=== PATIENT | female | born 1955 | race Caucasian/White ===

== ENCOUNTER 2019-03-07 14:17 | Emergency (ER) | payer BC ==
[2019-03-07] MEDS ORDERED: HYDROmorphone 1 MG/ML 1 ML SYRINGE IVP STA ×2 (14:32→14:47)
[2019-03-07] MEDS ORDERED: SODIUM CHLORIDE 0.9% 1,000 ML IV STA (14:36)
[2019-03-07] MEDS ORDERED: KETOROLAC 30 MG/ML 1 ML VIAL IVP STA (14:46)
[2019-03-07 15:05] VITALS: RESP 18; TEMP 98.3
[2019-03-07] MEDS ORDERED: ONDANSETRON 4 MG ODT STARTER PACK 2 TAB BTL PO STA (15:24)
[2019-03-07] MEDS ORDERED: Acetaminophen-Codeine 300-30mg TAB PO STA ×2 (15:24→15:48)
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
[2019-03-07 15:57] VITALS: BP 152/95; PULSE 69
== END 2019-03-07 16:30 | disposition other institution (70) ==
LOC: EC 14:17 → SUPCPDRO 14:17 → EC 16:30
DX: T24.211A Burn of second degree of right thigh, initial encounter (principal); T24.212A Burn of second degree of left thigh, initial encounter; T31.10 Burns involving 10-19% of body surface with 0% to 9% third degree burns; Z87.891 Personal history of nicotine dependence; Z79.1 Long term (current) use of non-steroidal anti-inflammatories (NSAID); Z79.899 Other long term (current) drug therapy; X12.XXXA Contact with other hot fluids, initial encounter; Y93.89 Activity, other specified
CPT/HCPCS: 99285; 96374; 96375; 96361; J1885; J1170; S0119

== ENCOUNTER 2019-03-11 18:32 | Emergency (ER) | payer BC ==
[2019-03-11 19:54] VITALS: BP 174/94; PULSE 91; RESP 18
[2019-03-11 20:57] VITALS: TEMP 98.7
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
== END 2019-03-11 21:03 | disposition home or self-care (01) ==
LOC: EC 18:32
DX: Z48.00 Encounter for change or removal of nonsurgical wound dressing (principal); Z79.1 Long term (current) use of non-steroidal anti-inflammatories (NSAID); Z79.899 Other long term (current) drug therapy; Z87.891 Personal history of nicotine dependence; Z87.828 Personal history of other (healed) physical injury and trauma
CPT/HCPCS: 99282

== ENCOUNTER 2020-04-20 13:00 | Emergency (ER) | payer MEDICAID ==
[2020-04-20 13:17] VITALS: RESP 18
--- NOTE | 2020-04-20 14:10 | ED ---
Chest Pain HPI - General Chief Complaint: Chest Pain Stated Complaint: SOB,R Side TIngling Time Seen by Provider: 04/20/20 13:24 Source: patient, RN notes reviewed Mode of arrival: ambulatory Limitations: no limitations - History of Present Illness Initial Comments: This is a 64-year-old female with no personal history of heart disease but who does have hypertension who presents with complaints of 2 weeks of intermittent episodes of shortness of breath with no definite overt chest pain but she has had some left-sided numbness his fist to the medial aspect of the left forearm below the elbow. Currently she is symptom free but the symptoms have been coming on and off lasting between 15 and 30 minutes. She does have a history of anxiety she does states she recently lost her and is doing with the anxiety of that time. No cough fevers chills nausea vomiting sweats no other symptoms at this time when asked again no chest pain which does have some intermittent tightness. - Related Data Home Medications Medication Instructions Recorded Confirmed Citalopram Hydrobromide [CeleXA] 20 mg PO DAILY 04/20/20 04/20/20 Losartan Potassium 50 mg PO DAILY 04/20/20 04/20/20 Meloxicam 7.5 mg PO DAILY 04/20/20 04/20/20 Oxybutynin Chloride 5 mg PO BID 04/20/20 04/20/20 Zolpidem Tartrate [Ambien] 5 mg PO HS PRN 04/20/20 04/20/20 Allergies Allergy/AdvReac Type Severity Reaction Status Date / Time No Known Allergies Allergy Verified 04/20/20 14:35 Review of Systems ROS Statement: Those systems with pertinent positive or pertinent negative responses have been documented in the HPI. ROS Other: All systems not noted in ROS Statement are negative. EKG Findings - EKG Results: EKG: interpreted by JOSE LUIS, sinus rhythm (Normal sinus rhythm a 100 IN interval 172 QRS 88 QT since QTC 382/[address]-T wave changes.) Past Medical History Past Medical History: Hypertension History of Any Multi-Drug Resistant Organisms: None Reported Past Surgical History: Unable to Obtain Past Psychological History: No Psychological Hx Reported Smoking Status: Never smoker Past Alcohol Use History: None Reported Past Drug Use History: None Reported General Exam - General Exam Comments Initial Comments: This is a well-developed well-nourished awake alert oriented 3 female Limitations: no limitations General appearance: alert, anxious Head exam: Present: atraumatic, normocephalic, normal inspection Eye exam: Present: normal appearance, PERRL, EOMI. Absent: scleral icterus, conjunctival injection, periorbital swelling ENT exam: Present: normal exam, mucous membranes moist Neck exam: Present: normal inspection. Absent: tenderness, meningismus, lymphadenopathy Respiratory exam: Present: normal lung sounds bilaterally. Absent: respiratory distress, wheezes, rales, rhonchi, stridor Cardiovascular Exam: Present: normal rhythm, tachycardia, normal heart sounds. Absent: systolic murmur, diastolic murmur, rubs, gallop, clicks GI/Abdominal exam: Present: soft, normal bowel sounds. Absent: distended, tenderness, guarding, rebound, rigid Extremities exam: Present: normal inspection, full ROM, normal capillary refill. Absent: tenderness, pedal edema, joint swelling, calf tenderness Back exam: Present: normal inspection Neurological exam: Present: alert, oriented X3, CN II-XII intact Psychiatric exam: Present: normal affect, normal mood Skin exam: Present: warm, dry, intact, normal color. Absent: rash Course Vital Signs 04/20/20 13:11 Temperature 98.1 F Pulse Rate 101 H Respiratory 18 Rate Blood Pressure 171/89 O2 Sat by Pulse 98 Oximetry Chest Pain MDM - MDM Patient has no further symptoms at this time. I did discuss [employer] her and with Dr. So. Patient will follow up outpatient and I do recommend a stress test. Disposition Clinical Impression: Atypical chest pain Disposition: HOME SELF-CARE Condition: Good Instructions (If sedation given, give patient instructions): Chest Pain (ED) Additional Instructions: Follow-up with Dr. So to schedule an outpatient stress test. Is patient prescribed a controlled substance at d/c from ED?: No Referrals: Sushma So MD [Primary Care Provider] - 1-2 days
[2020-04-20 14:24] LABS: Basophils # (A) 0.1 k/uL (0-0.2); Basophils % (A) 1 %; Eosinophils # (A) 0.2 k/uL (0-0.7); Eosinophils % (A) 2 %; HCT 38.7 % (34.0-46.0); HGB 12.8 gm/dL (11.4-16.0); Lymphocytes # (A) 2.5 k/uL (1.0-4.8); Lymphocytes % (A) 31 %; MCH 30.5 pg (25.0-35.0); MCHC 33.1 g/dL (31.0-37.0); MCV 92.2 fL (80.0-100.0); Mean Platelet Volume 6.8; Monocytes # (A) 0.5 k/uL (0-1.0); Monocytes % (A) 7 %; Neutrophils # (A) 4.7 k/uL (1.3-7.7); Neutrophils % (A) 58 %; Platelet Count 364 k/uL (150-450); RDW 12.6 % (11.5-15.5); WBC 8.1 k/uL (3.8-10.6)
--- NOTE | 2020-04-20 14:26 | XR ---
EXAMINATION TYPE: XR chest 2V DATE OF EXAM: 04/20/2020 COMPARISON: NONE HISTORY: Shortness of breath TECHNIQUE: Frontal and lateral views of the chest are obtained. FINDINGS: Scattered senescent parenchymal changes noted. Hyperinflation compatible with COPD. No evidence for infiltrate. No evidence for atelectasis. Heart size is stable. Mediastinal structures are stable and grossly unremarkable. No evidence for hilar prominence. Degenerative changes dorsal spine. IMPRESSION: 1. No evidence for acute pulmonary disease.
[2020-04-20 14:31] LABS: Albumin 4.1 g/dL (3.5-5.0); Calcium 9.1 mg/dL (8.4-10.2); Total Bilirubin 0.6 mg/dL (0.2-1.3); Total Protein 7.8 g/dL (6.3-8.2)
[2020-04-20 14:35] LABS: D-Dimer 0.56 mg/L FEU (<0.60); INR 0.9 (<1.2); Partial Thromboplastin Time 24.6 sec (22.0-30.0); Prothrombin Time 9.5 sec (9.0-12.0)
[2020-04-20 14:36] LABS: Potassium 4.8 mmol/L (3.5-5.1)
[2020-04-20 15:35] VITALS: BP 173/85; PULSE 85; TEMP 97.3
== END 2020-04-20 15:39 | disposition home or self-care (01) ==
LOC: EC 13:00
DX: R07.89 Other chest pain (principal); I10 Essential (primary) hypertension; F41.9 Anxiety disorder, unspecified; R06.02 Shortness of breath; R20.2 Paresthesia of skin; Z79.899 Other long term (current) drug therapy; Z79.1 Long term (current) use of non-steroidal anti-inflammatories (NSAID)
CPT/HCPCS: 36415; 71046; 80053; 82550; 83735; 84484; 85025; 85379; 85610; 85730; 93005; 99285

== ENCOUNTER → 2021-12-06 | Outpatient (CLI) | payer MEDICARE ==
[2021-12-06 08:28] LABS: Appearance,Urine Clear (Clear); Bilirubin,Urine Negative (Negative); Blood,Urine Negative (Negative); Color,Urine Light Yellow; Glucose,Urine (UA) Negative (Negative); Ketones,Urine Negative (Negative); Leukocyte Esterase,Urine Negative (Negative); Nitrite,Urine Negative (Negative); PH, Urine 5.5 (5.0-8.0); Protein,Urine Negative (Negative); Specific Gravity,Urine 1.008 (1.001-1.035); Urobilinogen,Urine <2.0 mg/dL (<2.0)
[2021-12-06 08:36] LABS: INR 0.9 (<1.2); Partial Thromboplastin Time 25.8 sec (22.0-30.0); Prothrombin Time 10.1 sec (9.0-12.0)
[2021-12-06 14:20] LABS: HCT 41.6 % (37.2-46.3); HGB 13.1 g/dL (12.0-15.0); MCH 29.4 pg (27.0-32.0); MCHC 31.5 g/dL (32.0-37.0); MCV 93.3 fL (80.0-97.0); Mean Platelet Volume 9.2 fL (9.5-12.2); NRBC Per 100 WBC 0 /100 WBCS (0.0-0.0); Platelet Count 398 X 10*3/uL (140-440); RBC 4.46 X 10*6/uL (4.10-5.20); RDW 13.4 % (11.5-14.5); WBC 8.45 X 10*3/uL (4.50-10.00)
[2021-12-06 15:54] LABS: African American GFR (CKD) 105.4 (60.0-200.0); Albumin 4.4 g/dL (3.8-4.9); Albumin/Globulin Ratio 1.33 (1.60-3.17); Anion Gap 17.6 mmol/L (10.00-18.00); Blood Urea Nitrogen 11.9 mg/dL (9.0-27.0); Calcium 9.4 mg/dL (8.7-10.3); Carbon Dioxide 18.4 mmol/L (20.0-27.5); Globulin 3.3 g/dL (1.6-3.3); Non-African American GFR(CKD) 90.9 (60.0-200.0); Total Bilirubin 0.3 mg/dL (0.30-1.20); Total Protein 7.7 g/dL (6.2-8.2)
== END | disposition home or self-care (01) ==
LOC: LABPAT 07:03
PROVIDERS: ATTEND Orthopaedic Surgery
DX: Z01.812 Encounter for preprocedural laboratory examination (principal); M17.11 Unilateral primary osteoarthritis, right knee
CPT/HCPCS: 36415; 80053; 81003; 85027; 85610; 85730; 87070

== ENCOUNTER 2021-12-13 11:02 | Day surgery (SDC) | payer MEDICARE ==
[2021-12-08 14:06] VITALS: BMI 38.5
[~2021-12-13 11:02] MED LIST: ACETAMINOPHEN TAB 500 MG TAB PO PRN; DEXAMETHASONE SOD PHOSPHATE 4 MG/ML 1 ML VIAL IV ONE; GABAPENTIN 300 MG CAP PO PRN; LACTATED RINGERS 1,000 ML IV SCH; MELOXICAM 7.5 MG TAB PO PRN; MIDAZOLAM 2 MG/2 ML VIAL IV PRN; ONDANSETRON 4 MG/2 ML VIAL IVP ONE; TRANEXAMIC ACID IN NACL,ISO-OS 1,000 MG in SALINE 1 100ML.BAG IVPB PRN
[2021-12-13] MEDS ORDERED: fentaNYL (PF) 50 MCG/ML 2 ML AMP IVP ONE (12:19)
[2021-12-13] MEDS ORDERED: MIDAZOLAM 2 MG/2 ML VIAL IVP ONE (12:19)
[2021-12-13] MEDS ORDERED: TRANEXAMIC ACID IN NACL,ISO-OS 1,000 MG/100 ML BAG ONE (12:44)
[2021-12-13] MEDS ORDERED: ROCURONIUM 10 MG/ML (5 ML VIAL) IV ONE (12:44)
[2021-12-13] MEDS ORDERED: SUCCINYLCHOLINE CHLORIDE 100 MG/5 ML SYR IV ONE (12:44)
[2021-12-13] MEDS ORDERED: PROPOFOL 10 MG/ML 20 ML VIAL IV ONE (12:44)
[2021-12-13] MEDS ORDERED: LIDOCAINE 1% INJ 10MG/ML (20 ML MDV) ONE (12:44)
[2021-12-13] MEDS ORDERED: ROPIVACAINE 5 MG/ML 30 ML VIAL ONE (12:44)
[2021-12-13] MEDS ORDERED: ceFAZolin 1,000 MG in SODIUM CHLORIDE 0.9% 1,000 ML IRRIGATION ONE (12:44)
[2021-12-13] MEDS ORDERED: SODIUM CHLORIDE 0.9% (PF) 10 ML VIAL ONE (12:44)
[2021-12-13] MEDS ORDERED: HYDROmorphone (PF) 1 MG/ML ONE (12:44)
[2021-12-13] MEDS ORDERED: MIDAZOLAM 2 MG/2 ML VIAL ONE (12:44)
[2021-12-13] MEDS ORDERED: NEOSTIGMINE 1 MG/ML 10 ML VIAL ONE (12:44)
[2021-12-13] MEDS ORDERED: GLYCOPYRROLATE 0.2 MG/ML 2 ML VIAL ONE (12:44)
[2021-12-13] MEDS ORDERED: fentaNYL (PF) 50 MCG/ML 2 ML AMP ONE (12:44)
[2021-12-13] MEDS ORDERED: HYDROmorphone 0.2 MG/1 ML SYRINGE IVP PRN (12:45)
[2021-12-13] MEDS ORDERED: ONDANSETRON 4 MG/2 ML VIAL IVP PRN (12:45)
[2021-12-13] MEDS ORDERED: HYDROmorphone 0.5 MG/0.5 ML SYRINGE IVP PRN ×2 (12:45)
[2021-12-13] MEDS ORDERED: SODIUM CHLORIDE 0.9% 1,000 ML IV SCH (12:45)
[2021-12-13] MEDS ORDERED: NALOXONE 0.4 MG/ML 1 ML VIAL IV PRN (12:45)
[2021-12-13] MEDS ORDERED: HYDROcodone/APAP 7.5-325MG 1 EACH TAB PO PRN ×2 (12:47)
--- NOTE | 2021-12-13 14:03 | P.OP ---
Date of Procedure: 12/13/21 Preoperative Diagnosis: Severe osteoarthritis right knee Postoperative Diagnosis: Severe osteoarthritis right knee Procedure(s) Performed: Right total knee arthroplasty Implants: Leach [employer]hew Journey II CR Oxinium cruciate retaining femoral component size 6, right [employer] Journey nonporous tibial baseplate size 5, right [employer] Journey II, XLPE CR articular insert, size 9 mm, Size 5-6, right [employer] Journey Chani II resurfacing patellar component, oval, 32 mm All components were cemented using Palacos R bone cement The articulation is Oxinium on polyethylene Anesthesia: GETA Surgeon: Tip Santana [employer] #1: Rebecca Hardin Estimated Blood Loss (ml): 50 Pathology: other (Bone and cartilage) Condition: stable Disposition: PACU Indications for Procedure: After failure of conservative treatment we discussed the surgical and nonsurgical treatment options at length. Patient wishes to proceed with a total knee arthroplasty. Complications specific to this procedure were discussed at length, including but not limited to infection, bleeding, stiffness, and nerve injury. Covid-19 was also discussed at length with the patient, and they are aware of the current policies and procedures. The patient was given the option of delaying surgery, but they elect to proceed knowing these risks. Patient is aware of all these complications and informed consent was obtained Operative Findings: The operative findings are consistent with severe osteoarthritis of the right knee Description of Procedure: Patient was seen in the preoperative area and the consent was reviewed and the operative site was marked with a skin marker. The patient verified the procedure and the operative site. An adductor canal pain catheter and an iPACK block was placed by anesthesia in the preoperative area. The patient was then brought to the operating room and given preoperative antibiotics intravenously. A gram of transexamic acid was given intravenously. A general anesthetic was administered by the anesthesia department. A tourniquet was placed on the upper thigh and the lower extremity was prepped with chlorhexidine and draped in usual sterile fashion. A universal timeout was then performed which confirmed the patient's name, surgical site, ALLERGIES, and consent. The lower extremity was then exsanguinated and tourniquet was inflated to 250 mmHg. A standard anterior midline approach to the knee was performed. The skin and subcutaneous tissue were sharply dissected down to the patellar tendon. A medial parapatellar arthrotomy was then performed. The knee was then extended, the patellar was everted, and the knee was again flexed. The infra-patellar fat pad was removed in order to enhance exposure. The anterior horns of both menisci were excised, and a release was performed to the posterior medial aspect of the knee. On gross visual inspection, there was complete loss of articular cartilage in the medial and patellofemoral joint spaces. There was also significant cartilage damage in the lateral compartment. There were multiple periarticular osteophytes globally about the knee which were then removed with a Ronguer. The femoral canal was then opened with the 9.5 mm intramedullary drill. The 8 mm intramedullary nuhzat was then inserted into the femoral canal with the distal femoral cutting guide set for 5 of valgus. The distal femoral cutting block was then pinned in place. The intramedullary nuzhat was then removed, and the distal femur was then cut. The cutting block was then removed and the cut was checked for symmetry. The resected bone was then measured to confirm the appropriate distal femoral resection. Next, the sizing guide was then placed and set for 3 external rotation based off of the epicondylar axis and Whitesides line. Pins were then placed and the drill holes, and the femur was sized with the sizing stylus. The pins were then removed, and the sizing guide was then removed. The spikes of the femoral block was then placed into the predrilled holes, and malleted into place. Two 45 mm pins were then placed into the fixation holes on the cutting block. An llay wing was then used to ensure there would be no notching with the anterior cut. The anterior condyles were cut without notching. The anterior chord cut was then performed, followed by the posterior cut, posterior chamfer cut, and the anterior chamfer cut. The collateral ligaments were protected during the entire process. The cutting block was then removed. Any remaining bone and osteophytes were removed from the femur with a Ronguer. The femoral canal was plugged with autologous bone. Attention was then directed to the tibia. The remaining ACL was removed with a Ronguer, and the tibia was then gently subluxed forward with a large bent knee retractor. Any remaining menisci were excised. The posterior lateral corner was cauterized in order to coagulate the lateral geniculate artery. The extra medullary tibial cutting guide was then placed, set for the appropriate rotation, slope, and depth of resection. The proximal tibia cutting guide was then pinned in place. Proximal tibia was then cut and sized. The femoral trial was placed. A narrow saw blade was then used to remove the anterior intracondylar femoral bone. The CR notch trial was then placed. The tibial trial was placed with the appropriate-sized insert. The knee was able to fully extend and flex to 130 and was stable throughout all range of motion. The knee was then extended and the patella was everted. Patella was then measured, and then using an osteotomy guide, the patella was cut at the appropriate level. The patella was then measured and drilled and the patella trial was then placed. The knee was then taken through range of motion with the patella trial and the patella tracked normally using the no thumbs technique. The knee was then extended patella trial was then removed and the patella was everted. Knee was then flexed and lug holes were drilled through the femoral trial and the femoral trial was then removed. The tibial was then re-exposed, and the tibial broach guide was then pinned in place after it was set for the appropriate rotation to allow for the most coverage without overhang. The tibia was then reamed and broached. The cut surfaces of bone were then irrigated with pulsatile lavage. The knee was also irrigated with Irrisept solution. The components were then opened, the cement was mixed, and the components were then cemented in place. The cement was allowed to harden with the knee in full extension. After the cemented hardened, the tourniquet was released and hemostasis was obtained. A second gram of transexamic acid was given intravenously. The knee was again irrigated. The knee was again taken through range of motion and found to be stable throughout all range of motion of 0-130, and the patella tracked normally. The fascia was then closed with 0 Vicryl followed by #2 strata fix suture. The subcutaneous tissue was closed with 3-0 Vicryl and 3-0 strata fix. Exofin glue was used for the skin and placed with the knee in flexion. After the glue had dried, and Optafoam silver impregnated dressing was applied. The patient was then transferred to recovery room in stable condition. The elder assistant JUDAH Valle was required due the complexity surgery and the need for a skilled ophthalmology surgical technician. She assisted in positioning, draping, retraction, and closure of the wound.
[2021-12-13] MEDS ORDERED: ROPIVACAINE 0.2%-NS ON-Q PUMP 1,090 MG, EMPTY PAIN BALL 1 EACH MISCELLANE PRN (14:40)
--- NOTE | 2021-12-13 14:43 | P.ANPRN ---
Procedure Note - Anesthesia - Nerve Block Performed Right Adductor Canal Time Out Performed: Yes (12:18) Date of Procedure: 12/13/21 Procedure Start Time: : Procedure Stop Time: Location of Patient: PreOp Indication: Acute Post-Operative Pain, Requested by Surgeon (DR Tip Santana) Sedation Type: Sedate with meaningful contact maintained Preparation: Sterile Prep, Sterile Dressing Position: Supine Catheter: Indwelling Needle Types: Pajunk Needle Gauge: 21 Ultrasound used to visualize needle placement: Yes Ultrasound used to observe medication spread: Yes Injectate: 0.5% Ropivacaine (see comment for volume) (15cc) Blood Aspirated: No Pain Paresthesia on Injection Noted: No Resistance on Injection: Normal Image Stored and Saved: Yes Events: Uneventful and Well Tolerated
--- NOTE | 2021-12-13 14:44 | P.ANPRN ---
Procedure Note - Anesthesia - Nerve Block Performed Right iPack Time Out Performed: Yes (:29) Date of Procedure: 12/13/21 Procedure Start Time: Procedure Stop Time: : Location of Patient: PreOp Indication: Acute Post-Operative Pain, Requested by Surgeon (Dr Tip Santana) Sedation Type: Sedate with meaningful contact maintained Preparation: Sterile Prep Position: Supine Catheter: None Needle Types: Pajunk Needle Gauge: 21 Ultrasound used to visualize needle placement: Yes Ultrasound used to observe medication spread: Yes Injectate: 0.5% Ropivacaine (see comment for volume) (15cc +5cc PF Normal saline) Blood Aspirated: No Pain Paresthesia on Injection Noted: No Resistance on Injection: Normal Image Stored and Saved: Yes Events: Uneventful and Well Tolerated
[2021-12-13] MEDS: HYDROmorphone 0.5 MG/0.5 ML SYRINGE IVP PRN ×3 (14:54→15:39)
[2021-12-13] MEDS ORDERED: KETOROLAC 15 MG/ML 1 ML VIAL IVP ONE (14:56)
[2021-12-13] MEDS ORDERED: ONDANSETRON 4 MG/2 ML VIAL IVP ONE (15:09)
--- NOTE | 2021-12-13 15:11 | XR ---
EXAMINATION TYPE: XR knee limited RT DATE OF EXAM: 12/13/2021 COMPARISON: NONE TECHNIQUE: Two views submitted HISTORY: Post op FINDINGS: There is a prosthetic knee in near anatomic alignment. There is soft tissue edema and emphysema. IMPRESSION: 1. Postoperative change. Appears in near-anatomic alignment.
[2021-12-13 15:18] VITALS: TEMP 98
[2021-12-13] MEDS ORDERED: LACTATED RINGERS 1,000 ML IV ONE (15:26)
[2021-12-13 15:48] VITALS: RESP 16
[2021-12-13 17:18] VITALS: BP 145/76; PULSE 78
== END 2021-12-13 18:10 | disposition home health service (06) ==
LOC: OR 11:02
PROVIDERS: ATTEND Orthopaedic Surgery
DX: M17.11 Unilateral primary osteoarthritis, right knee (principal); I10 Essential (primary) hypertension; K21.9 Gastro-esophageal reflux disease without esophagitis; K76.0 Fatty (change of) liver, not elsewhere classified; Z79.899 Other long term (current) drug therapy
CPT/HCPCS: 97110; 97161; 64999; 64448; 76942; 88300; 73560; C1713; C1776; J2250; J1100; J2710; J0690 ×2; J2405; J2001; J3010; J1170 ×2; J2795 ×2; J1885; J0330; J2704

== ENCOUNTER 2023-09-22 12:16 | Day surgery (SDC) | payer MEDICARE ==
[2023-09-19 11:51] VITALS: BMI 36.3
[~2023-09-22 12:16] MED LIST changes: -ACETAMINOPHEN TAB 500 MG TAB PO PRN; -DEXAMETHASONE SOD PHOSPHATE 4 MG/ML 1 ML VIAL IV ONE; -GABAPENTIN 300 MG CAP PO PRN; -LACTATED RINGERS 1,000 ML IV SCH; +LIDOCAINE 1% (10MG/ML) FOR IV START INTRADERMA PRN; -MELOXICAM 7.5 MG TAB PO PRN; -MIDAZOLAM 2 MG/2 ML VIAL IV PRN; -ONDANSETRON 4 MG/2 ML VIAL IVP ONE; -TRANEXAMIC ACID IN NACL,ISO-OS 1,000 MG in SALINE 1 100ML.BAG IVPB PRN
[2023-09-22 12:57] VITALS: TEMP 97.4
[2023-09-22] MEDS: LACTATED RINGERS 1,000 ML IV SCH ×2 (13:02→13:57)
[2023-09-22] MEDS ORDERED: LIDOCAINE 1% INJ 10MG/ML (20 ML MDV) ONE (13:58)
[2023-09-22] MEDS ORDERED: PROPOFOL 10 MG/ML 20 ML VIAL IV ONE (13:58)
--- NOTE | 2023-09-22 14:18 | P.PCN ---
Date of Procedure: 09/22/23 Procedure(s) Performed: BRIEF HISTORY: Patient is a 68-year-old pleasant female scheduled for an elective colonoscopy as a part of evaluation of intermittent rectal bleeding for the last 1 year duration. PROCEDURE PERFORMED: Colonoscopy with biopsy. PREOPERATIVE DIAGNOSIS: Intermittent rectal bleeding. IV sedation per Anesthesia. PROCEDURE: After informed consent was obtained, the patient, was brought into the endoscopy unit. IV sedation was administered by Anesthesia under continuous monitoring. Digital rectal examination was normal. Initially the Olympus CF-160 flexible video colonoscope was then inserted in the rectum, gradually advanced into the cecum without any difficulty. Careful examination was performed as the scope was gradually being withdrawn. Ileocecal valve and the appendiceal orifice were visualized and appeared normal. Prep was excellent. Mucosa of the cecum, appeared normal. In the ascending colon there was a 1 cm superficial ulceration that was biopsied. Rest of the ascending colon, transverse colon, descending colon, sigmoid colon, and rectum appeared normal. Scattered sigmoid diverticulosis. Sigmoid Anastomosis was located at 20 cm from the anal was there appeared widely patent and normal. Retroflexion was performed in the rectum and grade 2 internal hemorrhoids were seen. The patient tolerated the procedure well. IMPRESSION: 1 cm linear superficial ulceration in the ascending colon status post biopsy Scattered sigmoid diverticulosis Grade 2 internal hemorrhoids RECOMMENDATIONS: Findings of this examination were discussed with the patient as well as a family.. He was advised to be a high-fiber diet and take fiber supplements a regular basis and avoid straining and constipation. Follow with the biopsy results. Recommend repeat screening colonoscopy in 10 years.
[2023-09-22 14:34] VITALS: RESP 16
[2023-09-22 14:58] VITALS: BP 106/70; PULSE 70
== END 2023-09-22 14:59 | disposition home or self-care (01) ==
LOC: ORWHC2ENDO 12:16
PROVIDERS: ATTEND Internal Medicine Gastroenterology
DX: K63.3 Ulcer of intestine (principal); K57.30 Diverticulosis of large intestine without perforation or abscess without bleeding; K64.1 Second degree hemorrhoids; I10 Essential (primary) hypertension; Z79.899 Other long term (current) drug therapy; Z90.49 Acquired absence of other specified parts of digestive tract; Z87.891 Personal history of nicotine dependence; Z80.6 Family history of leukemia
CPT/HCPCS: 88305; 45380; J2001; J2704